=== PATIENT | female | born 1980 | race Caucasian/White ===

== ENCOUNTER → 2021-05-15 14:47 | Outpatient (CLI) | payer OTHER, SELFPAY ==
--- NOTE | 2021-05-15 | DI.MG.S_ITS ---
BILATERAL DIGITAL SCREENING MAMMOGRAM 3D/2D WITH CAD: 05/15/2021 CLINICAL: Routine screening. Baseline exam. No prior exams were available for comparison. The tissue of both breasts is heterogeneously dense. This may lower the sensitivity of mammography. Current study was also evaluated with a Computer Aided Detection (CAD) system. No significant masses, calcifications, or other findings are seen in either breast. IMPRESSION: NEGATIVE There is no mammographic evidence of malignancy. A 1 year screening mammogram is recommended. This exam was interpreted at Station ID: [id number]. NOTE: For mammograms, a report in lay terms will be sent to the patient. Approximately 15% of breast malignancies will not be visualized mammographically. In the management of a palpable breast mass, a negative mammogram must not discourage biopsy of a clinically suspicious lesion. Electronically Signed By: Long romero/lolis:05/15/2021 17:11:27 letter sent: Normal Exam ACR BI-RADS Category 1: Negative [id number]
== END ==
PROVIDERS: PCP Family Medicine; Referring Provider Family Medicine; Visit Provider Family Medicine
DX: Z12.31 Encounter for screening mammogram for malignant neoplasm of breast (principal)
CPT/HCPCS: 77063; 77067

== ENCOUNTER 2021-07-14 09:45 | Outpatient (RCR) | payer OTHER, SELFPAY ==
--- NOTE | 2021-04-28 16:29 | PT.OIE ---
Current Diagnoses Tension-type headache, unspecified, not intractable (04/28/21) Past Medical History (Last Updated 03/12/21 @ 13:25 by Phong Corea MD) GERD (gastroesophageal reflux disease) Right carpal tunnel syndrome Visit Care Team Role Provider Type Phong oCrea MD Attending Provider Physician Primary Care Provider Referring Provider Specialty: [facility] Practice Address: [address] [place] [address], [facility] Email: [email or web address] Physical Therapy Initial Evaluation PT-OP-A Visit Information Start: 04/28/21 16:10 Freq: Status: Active Protocol: Document 04/28/21 16:11 OF (Rec: 04/28/21 16:29 OF [id number]) Out-Patient Physical Therapy Visit Information Visit Information Visit Type Initial Evaluation Visit Start Time 09:50 Visit Stop Time 10:29 Total Visit Minutes 39 Visit Number 1 Evaluation Information Evaluation Date 04/28/21 PT-OP-B Current Condition Start: 04/28/21 16:10 Freq: Status: Active Protocol: Document 04/28/21 16:11 OF (Rec: 04/28/21 16:29 OF [id number]) Current Condition History of Current Condition Onset Date several months Current Complaints headach suboccipital, frontal History of Current Condition Pt states she has had increasing frequency of headaches. 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 Current Functional Impairments (Reported) Functional Limitations- Other Pt states she has trouble sleeping or using computer or driving due to headache PT-OP-C Subjective Start: 04/28/21 16:10 Freq: Status: Active Protocol: Document 04/28/21 16:11 OF (Rec: 04/28/21 16:29 OF [id number]) OP-PT Subjective Patient Comments Patient Comments Pt states she has difficulty with ADL due to intense headaches, difficulty driving Patient Reported Progress Same OP-PT Pain Assessment Pain Assessment Grid Paper Pain Assessment Grid Completed Yes Location head Pain Location Details sub occipital and frontal Intensity 5 Scale Used Numeric (0 - 10) Description Aching,Chronic,Crushing Frequency Frequent Variations/Patterns can be frontal and post Other Pain Aggravating Factors unsure Pain Alleviating Factors None PT-OP-H Neuro Start: 04/28/21 16:10 Freq: Status: Active Protocol: Document 04/28/21 16:11 OF (Rec: 04/28/21 16:29 OF [id number]) Sensation Evaluation Gross Sensation Gross Sensation WNL Comments Summary Comments Pt reports inconsistent tingling over R dorsum of hand , up to elbow, occasional. PT-OP-K Range of Motion Start: 04/28/21 16:10 Freq: Status: Active Protocol: Document 04/28/21 16:11 OF (Rec: 04/28/21 16:29 OF [id number]) Cervical Spine Range of Motion Cervical Spine Active Testing Position Sitting Comments pt demonstrates normal Cspine AROM PT-OP-L Special Tests Start: 04/28/21 16:10 Freq: Status: Active Protocol: Document 04/28/21 16:11 OF (Rec: 04/28/21 16:29 OF [id number]) Special Tests Cervical Spine Special Tests Spurling's Test Test Results (-) Comments bilat PT-OP-Q Treatments Start: 04/28/21 16:10 Freq: Status: Active Protocol: Document 04/28/21 16:11 OF (Rec: 04/28/21 16:29 OF [id number]) Manual Therapy Treatment Soft Tissue Mobilization suboccipital Mobilization Type Sustained Pressure Intensity/Depth Moderate Body Position Supine Manual Traction Cervical Body Position Supine Reps/Duration x5min Comments pt educated upon instructing spouse for HEP Other Other Manual Treatments (-) neural tension testing for ulnar, median, radial nerves bilat Self-Care/Home Management Treatment Education Patient Education Home Exercise Program Other Education pt educated upon HEP for chin tucks while supine, cervical traction, nature of carpal baron being within hand only PT-OP-T Assessment and Plan Start: 04/28/21 16:10 Freq: Status: Active Protocol: Document 04/28/21 16:11 OF (Rec: 04/28/21 16:29 OF [id number]) Physical Therapy Assessment Rehab Potential Rehabilitation Potential Good Evaluation Complexity Number of Personal Factors/Comorbidities 1-2 Number of Body Systems Impaired 1-2 Clinical Presentation at Evaluation Stable Impairments Impairments Functional Activities,Pain, Strength Goals DNF strength Impairment deep neck flexor weakness Short Term Goal (STG) Pt will improve deep neck flexor strength to complete chin tuck x30sec STG Duration 2 weeks Senior Living Goal (LTG) Pt will improve deep neck flexor strength to complete chin tuck x60sec LTG Duration 6 weeks pain Impairment pt has pain with sitting, driving, school work Short Term Goal (STG) Pt will complete ADL with pain <4/10 STG Duration 2 weeks Senior Living Goal (LTG) Pt will complete ADL with pain <2/10 LTG Duration 6 weeks HEP Impairment Pt lacks HEP Short Term Goal (STG) Pt will be I with HEP for cervical strengthening and pain management STG Duration 2 weeks Assessment Summary Assessment Mitra is a pleasant 41yo female. She presents with headaches originating suboccipital and progressing to frontal. She states they do not seem related to her bilat hand pain. She states she has pain up forearms and into elbows. She has had carpal baron release on L with little relief. She states her hands are tingling/numb occasionally on dorsum of hand and sometimes she cannot extend her R fingers, upon evaluation she has normal sensation and ROM. She may benefit from further physical therapy to address her headaches with suboccipital stretching, deep neck flexor strengthening and pt education upon home office modifications. She has been advised to set up monitor at eye level, 90/90 for shoulder and elbows, use a supportive chair to reduce forward head. She responds well to traction today and suboccipital release . She is aware of both for HEP , but declines handout. She is requesting 1x/week appts. Physical Therapy Plan Frequency and Duration Frequency of Treatment 1x/Week Duration of Treatment 6weeks Plan of Care Start Date 04/28/21 Plan of Care End Date 06/09/21 Therapeutic Interventions Therapeutic Interventions Gait Training,Home Exercise Program,Joint Mobilizations, Manual Therapy,Neuromuscular Re-education,Patient/Caregiver Education,Self-Care/Home Management,Soft Tissue Mobilization,Therapeutic Activities,Therapeutic Exercises Modalities Cold Pack/Ice Massage,Hot Packs Next Visit Focus/Plan Next Note Type Treatment Note Next Visit Plan re assess HEP for cervical traction from spouse, chin tucks while supine. Consider progressing to rows, retractions if symptoms are improving.
--- NOTE | 2021-04-28 16:30 | PT.OPPOC ---
Physical, Occupational & Speech Therapy At [facility] Current Diagnoses Tension-type headache, unspecified, not intractable (04/28/21) Visit Care Team Role Provider Type Phong Corea MD Attending Provider Physician Primary Care Provider Referring Provider Specialty: Family Practice Address: [address] [place] [address], [facility] Email: [email or web address] Plan Of Care PT-OP-T Assessment and Plan Start: 04/28/21 16:10 Freq: Status: Active Protocol: Document 04/28/21 16:11 OF (Rec: 04/28/21 16:29 OF [id number]) Physical Therapy Assessment Rehab Potential Rehabilitation Potential Good Evaluation Complexity Number of Personal Factors/Comorbidities 1-2 Number of Body Systems Impaired 1-2 Clinical Presentation at Evaluation Stable Impairments Impairments Functional Activities,Pain, Strength Goals DNF strength Impairment deep neck flexor weakness Short Term Goal (STG) Pt will improve deep neck flexor strength to complete chin tuck x30sec STG Duration 2 weeks Group Home Goal (LTG) Pt will improve deep neck flexor strength to complete chin tuck x60sec LTG Duration 6 weeks pain Impairment pt has pain with sitting, driving, school work Short Term Goal (STG) Pt will complete ADL with pain <4/10 STG Duration 2 weeks Group Home Goal (LTG) Pt will complete ADL with pain <2/10 LTG Duration 6 weeks HEP Impairment Pt lacks HEP Short Term Goal (STG) Pt will be I with HEP for cervical strengthening and pain management STG Duration 2 weeks Assessment Summary Assessment Mitra is a pleasant 41yo female. She presents with headaches originating suboccipital and progressing to frontal. She states they do not seem related to her bilat hand pain. She states she has pain up forearms and into elbows. She has had carpal baron release on L with little relief. She states her hands are tingling/numb occasionally on dorsum of hand and sometimes she cannot extend her R fingers, upon evaluation she has normal sensation and ROM. She may benefit from further physical therapy to address her headaches with suboccipital stretching, deep neck flexor strengthening and pt education upon home office modifications. She has been advised to set up monitor at eye level, 90/90 for shoulder and elbows, use a supportive chair to reduce forward head. She responds well to traction today and suboccipital release . She is aware of both for HEP , but declines handout. She is requesting 1x/week appts. Physical Therapy Plan Frequency and Duration Frequency of Treatment 1x/Week Duration of Treatment 6weeks Plan of Care Start Date 04/28/21 Plan of Care End Date 06/09/21 Therapeutic Interventions Therapeutic Interventions Gait Training,Home Exercise Program,Joint Mobilizations, Manual Therapy,Neuromuscular Re-education,Patient/Caregiver Education,Self-Care/Home Management,Soft Tissue Mobilization,Therapeutic Activities,Therapeutic Exercises Modalities Cold Pack/Ice Massage,Hot Packs Next Visit Focus/Plan Next Note Type Treatment Note Next Visit Plan re assess HEP for cervical traction from spouse, chin tucks while supine. Consider progressing to rows, retractions if symptoms are improving. Plan of Care Dates Plan of Care Start Date 04/28/21 Plan of Care End Date 06/09/21 Electronically Signed by: David Zamudio, PT 04/28/21 3046 Please Sign and Return: I have reviewed this Plan of Care and certify that the skilled therapy services above are required to meet the patient?s needs. Physician Signature Date Printed Name and Credentials Clinical Instructor Signature Printed Name and Credentials
--- NOTE | 2021-05-08 15:38 | PT.OTN ---
Current Diagnoses Tension-type headache, unspecified, not intractable (05/08/21) Physical Therapy Treatment Note PT-OP-A Visit Information Start: 04/28/21 16:10 Freq: Status: Active Protocol: Document 05/08/21 13:03 MB (Rec: 05/08/21 13:53 MB [id number]) Out-Patient Physical Therapy Visit Information Visit Information Visit Type Treatment Note Visit Start Time 13:03 Visit Stop Time 13:45 Total Visit Minutes 42 Visit Number 2 PT-OP-B Current Condition Start: 04/28/21 16:10 Freq: Status: Active Protocol: Document 04/28/21 16:11 OF (Rec: 04/28/21 16:29 OF [id number]) Current Condition History of Current Condition Onset Date several months Current Complaints headach suboccipital, frontal History of Current Condition Pt states she has had increasing frequency of headaches. 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 PT-OP-H Neuro Start: 04/28/21 16:10 Freq: Status: Active Protocol: Document 04/28/21 16:11 OF (Rec: 04/28/21 16:29 OF [id number]) Sensation Evaluation Gross Sensation Gross Sensation WNL Comments Summary Comments Pt reports inconsistent tingling over R dorsum of hand , up to elbow, occasional. PT-OP-K Range of Motion Start: 04/28/21 16:10 Freq: Status: Active Protocol: Document 04/28/21 16:11 OF (Rec: 04/28/21 16:29 OF [id number]) Cervical Spine Range of Motion Cervical Spine Active Testing Position Sitting Comments pt demonstrates normal Cspine AROM PT-OP-L Special Tests Start: 04/28/21 16:10 Freq: Status: Active Protocol: Document 04/28/21 16:11 OF (Rec: 04/28/21 16:29 OF [id number]) Special Tests Cervical Spine Special Tests Spurling's Test Test Results (-) Comments bilat PT-OP-Q Treatments Start: 04/28/21 16:10 Freq: Status: Active Protocol: Document 05/08/21 13:03 MB (Rec: 05/08/21 15:38 MB [id number]) Therapeutic Exercises Standing Exercises Racquet ball massage Standing Exercise Name Intrascapular STM, MWM upper traps in corner and infraspinatus against wall Side bilateral Self-Care/Home Management Treatment Education Patient Education Body Mechanics,Home Exercise Program,Joint Protection,Pain Management,Posture Other Education Education and handouts about sleep hygiene and headache management including reducing blue light, increasing non- caffeinated fluid intake, use of ice, low inflammatory diet, benefits of magnesium (clear with pharmacist/doctor), proper bra fitting to decrease thoracic compression, use of towel roll in pillow case for cervical support when sleeping , benefits of proper sitting with computer, walking for relaxation, taking breaks when sitting at computer PT-OP-T Assessment and Plan Start: 04/28/21 16:10 Freq: Status: Active Protocol: Document 05/08/21 13:03 MB (Rec: 05/08/21 13:53 MB [id number]) Physical Therapy Assessment Rehab Potential Rehabilitation Potential Good Evaluation Complexity Number of Personal Factors/Comorbidities 1-2 Number of Body Systems Impaired 1-2 Clinical Presentation at Evaluation Stable Impairments Impairments Functional Activities,Pain, Strength Goals DNF strength Impairment deep neck flexor weakness Short Term Goal (STG) Pt will improve deep neck flexor strength to complete chin tuck x30sec STG Duration 2 weeks Casting Operator Helper Goal (LTG) Pt will improve deep neck flexor strength to complete chin tuck x60sec LTG Duration 6 weeks pain Impairment pt has pain with sitting, driving, school work Short Term Goal (STG) Pt will complete ADL with pain <4/10 STG Duration 2 weeks [facility] Goal (LTG) Pt will complete ADL with pain <2/10 LTG Duration 6 weeks HEP Impairment Pt lacks HEP Short Term Goal (STG) Pt will be I with HEP for cervical strengthening and pain management STG Duration 2 weeks Assessment Summary Assessment Extensive sleep hygiene and headache self-care education today and provided handouts. Initiated racquet ball massage for myofascial tension. Physical Therapy Plan Frequency and Duration Frequency of Treatment 1x/Week Duration of Treatment 6weeks Plan of Care Start Date 04/28/21 Plan of Care End Date 06/09/21 Therapeutic Interventions Therapeutic Interventions Gait Training,Home Exercise Program,Joint Mobilizations, Manual Therapy,Neuromuscular Re-education,Patient/Caregiver Education,Self-Care/Home Management,Soft Tissue Mobilization,Therapeutic Activities,Therapeutic Exercises Modalities Cold Pack/Ice Massage,Hot Packs Next Visit Focus/Plan Next Note Type Treatment Note Next Visit Plan Check in to see how PT education and racquet ball massage is going, consider providing computer workstation /ergonomic handout and education, pect stretch in hook lying, thoracic rotation in sitting and progress scapular retraction/row and shoulder ER with band in standing, manual work
--- NOTE | 2021-05-14 11:00 | PT.OTN ---
Current Diagnoses Tension-type headache, unspecified, not intractable (05/14/21) Physical Therapy Treatment Note PT-OP-A Visit Information Start: 04/28/21 16:10 Freq: Status: Active Protocol: Document 05/14/21 10:55 OF (Rec: 05/14/21 11:00 OF [id number]) Out-Patient Physical Therapy Visit Information Visit Information Visit Type Treatment Note Visit Start Time 09:45 Visit Stop Time 10:30 Total Visit Minutes 45 Visit Number 3 Evaluation Information Evaluation Date 04/28/21 PT-OP-B Current Condition Start: 04/28/21 16:10 Freq: Status: Active Protocol: Document 04/28/21 16:11 OF (Rec: 04/28/21 16:29 OF [id number]) Current Condition History of Current Condition Onset Date several months Current Complaints headach suboccipital, frontal History of Current Condition Pt states she has had increasing frequency of headaches. 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 Current Functional Impairments (Reported) Functional Limitations- Other Pt states she has trouble sleeping or using computer or driving due to headache PT-OP-C Subjective Start: 04/28/21 16:10 Freq: Status: Active Protocol: Document 05/14/21 10:55 OF (Rec: 05/14/21 11:00 OF [id number]) OP-PT Subjective Patient Comments Patient Comments I have been doing the exercises, sleeping better, seems to be working Patient Reported Progress Improving OP-PT Pain Assessment Pain Assessment Grid Paper Pain Assessment Grid Completed No Location head Intensity 3 Scale Used Numeric (0 - 10) Description Aching Frequency Occasional PT-OP-H Neuro Start: 04/28/21 16:10 Freq: Status: Active Protocol: Document 04/28/21 16:11 OF (Rec: 04/28/21 16:29 OF [id number]) Sensation Evaluation Gross Sensation Gross Sensation WNL Comments Summary Comments Pt reports inconsistent tingling over R dorsum of hand , up to elbow, occasional. PT-OP-K Range of Motion Start: 04/28/21 16:10 Freq: Status: Active Protocol: Document 04/28/21 16:11 OF (Rec: 04/28/21 16:29 OF [id number]) Cervical Spine Range of Motion Cervical Spine Active Testing Position Sitting Comments pt demonstrates normal Cspine AROM PT-OP-L Special Tests Start: 04/28/21 16:10 Freq: Status: Active Protocol: Document 04/28/21 16:11 OF (Rec: 04/28/21 16:29 OF [id number]) Special Tests Cervical Spine Special Tests Spurling's Test Test Results (-) Comments bilat PT-OP-Q Treatments Start: 04/28/21 16:10 Freq: Status: Active Protocol: Document 05/14/21 10:55 OF (Rec: 05/14/21 11:00 OF [id number]) Therapeutic Exercises Sitting Exercises seated trunk rotation Side bilateral Reps/Minutes cues for thoracic extension, rotation with proper breathing Standing Exercises Racquet ball massage Standing Exercise Name Intrascapular STM, MWM upper traps in corner and infraspinatus against wall Side bilateral Manual Therapy Treatment Soft Tissue Mobilization suboccipital Mobilization Type Rolling,Sustained Pressure Intensity/Depth Moderate Body Position Supine Manual Traction Cervical Body Position Supine Reps/Duration x5min Comments pt states family has been assisting with c spine traction Lymphedema Treatment Patient Education Other Pt aware of limiting irritating stimuli prior to sleep, proper positioning with sleep, diet modifications to reduce GIBSON frequency. PT-OP-T Assessment and Plan Start: 04/28/21 16:10 Freq: Status: Active Protocol: Document 05/14/21 10:55 OF (Rec: 05/14/21 11:00 OF [id number]) Physical Therapy Assessment Rehab Potential Rehabilitation Potential Good Evaluation Complexity Number of Personal Factors/Comorbidities 1-2 Number of Body Systems Impaired 1-2 Clinical Presentation at Evaluation Stable Impairments Impairments Functional Activities,Pain, Strength Progress Towards Goals Progress Towards Goals Progressing Toward Goals Assessment Summary Assessment Mtira has reduced GIBSON frequency, she states HEP has been helpful. She demonstrates HEP with MIN A Physical Therapy Plan Frequency and Duration Frequency of Treatment 1x/Week Duration of Treatment 6weeks Plan of Care Start Date 04/28/21 Plan of Care End Date 06/09/21 Therapeutic Interventions Therapeutic Interventions Gait Training,Home Exercise Program,Joint Mobilizations, Manual Therapy,Neuromuscular Re-education,Patient/Caregiver Education,Self-Care/Home Management,Soft Tissue Mobilization,Therapeutic Activities,Therapeutic Exercises Modalities Cold Pack/Ice Massage,Hot Packs Next Visit Focus/Plan Next Note Type Treatment Note Next Visit Plan Re assess T spine rotation/ extension with HEP. workstation/ergonomic handout and education, pect stretch in hook lying, thoracic rotation in sitting and progress scapular retraction/row and shoulder ER with band in standing, manual work
--- NOTE | 2021-05-19 10:28 | PT.OTN ---
Current Diagnoses Tension-type headache, unspecified, not intractable (05/19/21) Physical Therapy Treatment Note PT-OP-A Visit Information Start: 04/28/21 16:10 Freq: Status: Active Protocol: Document 05/19/21 10:23 OF (Rec: 05/19/21 10:28 OF [id number]) Out-Patient Physical Therapy Visit Information Visit Information Visit Type Treatment Note Visit Start Time 09:40 Visit Stop Time 10:22 Total Visit Minutes 42 Visit Number 3 Evaluation Information Evaluation Date 04/28/21 PT-OP-B Current Condition Start: 04/28/21 16:10 Freq: Status: Active Protocol: Document 04/28/21 16:11 OF (Rec: 04/28/21 16:29 OF [id number]) Current Condition History of Current Condition Onset Date several months Current Complaints headach suboccipital, frontal History of Current Condition Pt states she has had increasing frequency of headaches. 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 Patient Reported Progress Same OP-PT Pain Assessment Pain Assessment Grid Paper Pain Assessment Grid Completed No Location head Intensity 1 Scale Used Numeric (0 - 10) Description Aching Frequency Occasional Variations/Patterns can be frontal and post PT-OP-H Neuro Start: 04/28/21 16:10 Freq: Status: Active Protocol: Document 04/28/21 16:11 OF (Rec: 04/28/21 16:29 OF [id number]) Sensation Evaluation Gross Sensation Gross Sensation WNL Comments Summary Comments Pt reports inconsistent tingling over R dorsum of hand , up to elbow, occasional. PT-OP-K Range of Motion Start: 04/28/21 16:10 Freq: Status: Active Protocol: Document 04/28/21 16:11 OF (Rec: 04/28/21 16:29 OF [id number]) Cervical Spine Range of Motion Cervical Spine Active Testing Position Sitting Comments pt demonstrates normal Cspine AROM PT-OP-L Special Tests Start: 04/28/21 16:10 Freq: Status: Active Protocol: Document 04/28/21 16:11 OF (Rec: 04/28/21 16:29 OF [id number]) Special Tests Cervical Spine Special Tests Spurling's Test Test Results (-) Comments bilat PT-OP-Q Treatments Start: 04/28/21 16:10 Freq: Status: Active Protocol: Document 05/19/21 10:23 OF (Rec: 05/19/21 10:28 OF [id number]) Therapeutic Exercises Sitting Exercises seated trunk rotation Side bilateral Reps/Minutes cues for thoracic extension, rotation with proper breathing Comments demo for UE positioning improves performance Standing Exercises Racquet ball massage Standing Exercise Name using theracane per request today, intrascap, post cerv Side bilateral Manual Therapy Treatment Soft Tissue Mobilization suboccipital Mobilization Type Rolling,Sustained Pressure Intensity/Depth Moderate Body Position Supine Manual Traction Cervical Body Position Supine Reps/Duration x5min Comments pt states family has been assisting with c spine traction PT-OP-T Assessment and Plan Start: 04/28/21 16:10 Freq: Status: Active Protocol: Document 05/19/21 10:23 OF (Rec: 05/19/21 10:28 OF [email or web address]) Physical Therapy Assessment Rehab Potential Rehabilitation Potential Good Evaluation Complexity Number of Personal Factors/Comorbidities 1-2 Number of Body Systems Impaired 1-2 Clinical Presentation at Evaluation Stable Impairments Impairments Functional Activities,Pain, Strength Goals DNF strength Impairment deep neck flexor weakness Short Term Goal (STG) Pt will improve deep neck flexor strength to complete chin tuck x30sec STG Duration 2 weeks Plastics Engineering Teacher Goal (LTG) Pt will improve deep neck flexor strength to complete chin tuck x60sec LTG Duration 6 weeks pain Impairment pt has pain with sitting, driving, school work Short Term Goal (STG) Pt will complete ADL with pain <4/10 STG Duration 2 weeks Plastics Engineering Teacher Goal (LTG) Pt will complete ADL with pain <2/10 LTG Duration 6 weeks HEP Impairment Pt lacks HEP Short Term Goal (STG) Pt will be I with HEP for cervical strengthening and pain management STG Duration 2 weeks Progress Towards Goals Progress Towards Goals Progressing Toward Goals Assessment Summary Assessment Mitra has reduced GIBSON frequency, she states HEP has been helpful. She demonstrates HEP with ANTONY Underwood. She reports pain after last tx, resolved with Aleve and stretches Physical Therapy Plan Frequency and Duration Frequency of Treatment 1x/Week Duration of Treatment 6weeks Plan of Care Start Date 04/28/21 Plan of Care End Date 06/09/21 Therapeutic Interventions Therapeutic Interventions Gait Training,Home Exercise Program,Joint Mobilizations, Manual Therapy,Neuromuscular Re-education,Patient/Caregiver Education,Self-Care/Home Management,Soft Tissue Mobilization,Therapeutic Activities,Therapeutic Exercises Modalities Cold Pack/Ice Massage,Hot Packs Next Visit Focus/Plan Next Note Type Treatment Note Next Visit Plan Re assess T spine rotation/ extension with HEP. workstation/ergonomic handout and education, pect stretch in hook lying, thoracic rotation in sitting and progress scapular retraction/row and shoulder ER with band in standing, manual work
--- NOTE | 2021-05-28 15:10 | PT.OTN ---
Current Diagnoses Tension-type headache, unspecified, not intractable (05/28/21) Physical Therapy Treatment Note PT-OP-A Visit Information Start: 04/28/21 16:10 Freq: Status: Active Protocol: Document 05/28/21 14:35 SP (Rec: 05/28/21 15:41 SP [id number]) Out-Patient Physical Therapy Visit Information Visit Information Visit Type Treatment Note Visit Note Pt had to leave early. Visit Start Time 14:32 Visit Stop Time 15:10 Total Visit Minutes 38 Visit Number 4 Number of PEDIATRIC OPHTHALMOLOGIST Visits 1 Evaluation Information Evaluation Date 04/28/21 PT-OP-B Current Condition Start: 04/28/21 16:10 Freq: Status: Active Protocol: Document 04/28/21 16:11 OF (Rec: 04/28/21 16:29 OF [id number]) Current Condition History of Current Condition Onset Date several months Current Complaints headach suboccipital, frontal History of Current Condition Pt states she has had increasing frequency of headaches. 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 She states is compliant with HEP. Pt states quinones Patient Reported Progress Improving PT-OP-H Neuro Start: 04/28/21 16:10 Freq: Status: Active Protocol: Document 04/28/21 16:11 OF (Rec: 04/28/21 16:29 OF [id number]) Sensation Evaluation Gross Sensation Gross Sensation WNL Comments Summary Comments Pt reports inconsistent tingling over R dorsum of hand , up to elbow, occasional. PT-OP-K Range of Motion Start: 04/28/21 16:10 Freq: Status: Active Protocol: Document 04/28/21 16:11 OF (Rec: 04/28/21 16:29 OF [id number]) Cervical Spine Range of Motion Cervical Spine Active Testing Position Sitting Comments pt demonstrates normal Cspine AROM PT-OP-L Special Tests Start: 04/28/21 16:10 Freq: Status: Active Protocol: Document 04/28/21 16:11 OF (Rec: 04/28/21 16:29 OF [id number]) Special Tests Cervical Spine Special Tests Spurling's Test Test Results (-) Comments bilat PT-OP-Q Treatments Start: 04/28/21 16:10 Freq: Status: Active Protocol: Document 05/28/21 14:35 SP (Rec: 05/28/21 15:41 SP [id number]) Therapeutic Exercises Supine Exercises cervical rotation w/ head nod Side bilateral Reps/Minutes x10 reps Comments cued slow rotation after manual, slow gentle comforting head nods small rg scap retraction/ depression Reps/Minutes 2x5 reps Comments incorporated with cervical chin nods/ CS ext Supine Exercise Name chin nod/tuck Reps/Minutes 10 reps x5 sec Comments cued slow w/ head contact table, if stable painfree unweight head/ lift Standing Exercises theracane self STMs Standing Exercise Name posterior neck musculature, posterior and inter scap musculature Side bilateral Reps/Minutes 4 min Comments demonstrated small circles, instructed sust pres MWM head nod/turn/scap mob Racquet ball massage Standing Exercise Name discussed is performing at home for self relief Side bilateral Equipment Used racquetball on wall Comments finds very helpful. Manual Therapy Treatment Soft Tissue Mobilization STMs Body Location suboccipitals, suboccipital release, SCM, proximal UT and Lev Scap Mobilization Type Cross-Friction,Sustained Pressure,Other Intensity/Depth Moderate Body Position Hooklying Comments manual and instruction on self pincer knead SCM and MWM head nod/ turn use of theracane suboccipitals, UT, lev scap with scap shld elevation. PT-OP-T Assessment and Plan Start: 04/28/21 16:10 Freq: Status: Active Protocol: Document 05/28/21 14:35 SP (Rec: 05/28/21 15:41 SP [id number]) Physical Therapy Assessment Goals DNF strength Impairment deep neck flexor weakness Short Term Goal (STG) Pt will improve deep neck flexor strength to complete chin tuck x30sec STG Duration 2 weeks Dishwashing Machine Operator Goal (LTG) Pt will improve deep neck flexor strength to complete chin tuck x60sec LTG Duration 6 weeks pain Impairment pt has pain with sitting, driving, school work Short Term Goal (STG) Pt will complete ADL with pain <4/10 STG Duration 2 weeks Dishwashing Machine Operator Goal (LTG) Pt will complete ADL with pain <2/10 LTG Duration 6 weeks HEP Impairment Pt lacks HEP Short Term Goal (STG) Pt will be I with HEP for cervical strengthening and pain management 05/28/21: seated trunk rotation, supine chin nods/DNF CS ext, CS rotation w/ nods added today, self STMs using ball on wall, added self manual SCM MWM today. STG Duration 2 weeks Assessment Summary Assessment Pt responded well to manual and instruction on self MWM application SCM, UT and inter scap using theracane. Reviewed supine DNF strengthening CS ROM and MWM CS rotatoin. Discussed postural alignment sitting while driving. Review future tx. Pt stated neck feels less tension. Physical Therapy Plan Frequency and Duration Frequency of Treatment 1x/Week Duration of Treatment 6weeks Plan of Care Start Date 04/28/21 Plan of Care End Date 06/09/21 Therapeutic Interventions Therapeutic Interventions Gait Training,Home Exercise Program,Joint Mobilizations, Manual Therapy,Neuromuscular Re-education,Patient/Caregiver Education,Self-Care/Home Management,Soft Tissue Mobilization,Therapeutic Activities,Therapeutic Exercises Modalities Cold Pack/Ice Massage,Hot Packs Next Visit Focus/Plan Next Note Type Treatment Note Next Visit Plan Next tx CLAIMS VICE PRESIDENT and manual instruction on self head/jaw, add open book, added pec stretch over rolled blanket/ foam roller, TB scap retraction at wall. Assess HEP , goal assessments. POC: workstation/ergonomic handout and education, pect stretch in hook lying, progress scapular retraction/ row and shoulder ER with band in standing, manual work
--- NOTE | 2021-06-02 10:37 | PT.OTN ---
Current Diagnoses Tension-type headache, unspecified, not intractable (06/02/21) Physical Therapy Treatment Note PT-OP-A Visit Information Start: 04/28/21 16:10 Freq: Status: Active Protocol: Document 06/02/21 09:46 SP (Rec: 06/02/21 12:53 SP [id number]) Out-Patient Physical Therapy Visit Information Visit Information Visit Type Treatment Note Visit Start Time 09:46 Visit Stop Time 10:37 Total Visit Minutes 51 Visit Number 5 Number of LICENSING REGISTRATION EXAMINER Visits 2 Evaluation Information Evaluation Date 04/28/21 PT-OP-B Current Condition Start: 04/28/21 16:10 Freq: Status: Active Protocol: Document 04/28/21 16:11 OF (Rec: 04/28/21 16:29 OF [id number]) Current Condition History of Current Condition Onset Date several months Current Complaints headach suboccipital, frontal History of Current Condition Pt states she has had increasing frequency of headaches. 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 Compliant with HEP and feels helping. Patient Reported Progress Improving PT-OP-H Neuro Start: 04/28/21 16:10 Freq: Status: Active Protocol: Document 04/28/21 16:11 OF (Rec: 04/28/21 16:29 OF [id number]) Sensation Evaluation Gross Sensation Gross Sensation WNL Comments Summary Comments Pt reports inconsistent tingling over R dorsum of hand , up to elbow, occasional. PT-OP-K Range of Motion Start: 04/28/21 16:10 Freq: Status: Active Protocol: Document 04/28/21 16:11 OF (Rec: 04/28/21 16:29 OF [id number]) Cervical Spine Range of Motion Cervical Spine Active Testing Position Sitting Comments pt demonstrates normal Cspine AROM PT-OP-L Special Tests Start: 04/28/21 16:10 Freq: Status: Active Protocol: Document 04/28/21 16:11 OF (Rec: 04/28/21 16:29 OF [id number]) Special Tests Cervical Spine Special Tests Spurling's Test Test Results (-) Comments bilat PT-OP-Q Treatments Start: 04/28/21 16:10 Freq: Status: Active Protocol: Document 06/02/21 09:46 SP (Rec: 06/02/21 12:53 SP [id number]) Therapeutic Exercises Supine Exercises chin nods/ CS ext Supine Exercise Name chin nod/tuck Equipment Used CS over rolled towel Reps/Minutes 5 reps x5 sec- review Comments cued slow w/ head contact table, if stable painfree unweight head/ lift Prone Exercises prone scap stab & posture Prone Exercise Name scap retract/depress, add UE lift, add CS neutral head nod flexion Resistance AROM for awareness (not a HEP) Reps/Minutes 3s hold x2 reps each addition Comments improved alignment corrections post cues for carryover standing at wall pos Standing Exercises resisted scap retraction Standing Exercise Name shld ER w/ TB set up Side bilateral Resistance Tb #1 Equipment Used can perform back to wall for postural alignment Reps/Minutes 5 sec hold x5 Comments added to HEP: Cued neutral CS, TA/no LS arch, wall posture Standing Exercise Name alignment awareness for spine Reps/Minutes 5 sec x5 Comments cued TA to reduce LS arch off wall, no UT recruit pec stretch Standing Exercise Name added to HEP Side bilateral Equipment Used in corner Reps/Minutes 30 x3 Comments ed on CS neutral, TA/ no arch LS, various UE ranges Racquet ball massage Standing Exercise Name discussed is performing at home for self relief Side bilateral Equipment Used racquetball on wall Comments finds very helpful. Manual Therapy Treatment Soft Tissue Mobilization jaw Body Location B masseter, medial pterygoid Mobilization Type Myofascial Release,Sustained Pressure Intensity/Depth Moderate Body Position Supine Comments manual and ed self application for decrease tension jaw and can carryover relaxing head/ neck- good resulted feedback STMs Body Location suboccipitals, suboccipital release, SCM, UT, prox scalene , CEO & FOUNDER, temporalis Mobilization Type Cross-Friction,Sustained Pressure,Other Intensity/Depth Moderate Body Position Hooklying Comments manual and instruction on self application. Initiated craniosacral therapy: decompression attention over parietal/frontal/temporal/ sphenoid, mandible with ed self application directioning and light wt contact nickel at home if helpful. Good understanding PT-OP-T Assessment and Plan Start: 04/28/21 16:10 Freq: Status: Active Protocol: Document 06/02/21 09:46 SP (Rec: 06/02/21 12:53 SP [id number]) Physical Therapy Assessment Goals DNF strength Impairment deep neck flexor weakness Short Term Goal (STG) Pt will improve deep neck flexor strength to complete chin tuck x30sec STG Duration 2 weeks Custodial Goal (LTG) Pt will improve deep neck flexor strength to complete chin tuck x60sec LTG Duration 6 weeks pain Impairment pt has pain with sitting, driving, school work Short Term Goal (STG) Pt will complete ADL with pain <4/10 06/02/21: pt report [id number] reported 1-2/ per week reduction in instances, comparied to 5 xwk. STG Duration 2 weeks Plumbing Mechanic Goal (LTG) Pt will complete ADL with pain <2/10 LTG Duration 6 weeks HEP Impairment Pt lacks HEP Short Term Goal (STG) Pt will be I with HEP for cervical strengthening and pain management 05/28/21: seated trunk rotation, supine chin nods/DNF CS ext, CS rotation w/ nods added today, self STMs using ball on wall, added self manual SCM MWM today. STG Duration 2 weeks Assessment Summary Assessment Pt responds well to manual, added STMs to cranial bones and jaw musculature w/ decompression attention. Reviewed CS neutral and neck flexor facilitation. Initiated wall posture and scap retraction ed awareness to allow improve posture during ADLs. Pt reports improvements in pain lessening weekly instances. Physical Therapy Plan Frequency and Duration Frequency of Treatment 1x/Week Duration of Treatment 6weeks Plan of Care Start Date 04/28/21 Plan of Care End Date 06/09/21 Therapeutic Interventions Therapeutic Interventions Gait Training,Home Exercise Program,Joint Mobilizations, Manual Therapy,Neuromuscular Re-education,Patient/Caregiver Education,Self-Care/Home Management,Soft Tissue Mobilization,Therapeutic Activities,Therapeutic Exercises Modalities Cold Pack/Ice Massage,Hot Packs Next Visit Focus/Plan Next Note Type Treatment Note Next Visit Plan Next tx add open book, pec stretch corner vs add over rolled blanket/noodle/ foam roller, postural strengthening over noodle/ foam roller, stand rows/ext, quadruped thread needle ROM. POC: workstation/ergonomic handout and education, progress scapular retraction/ row and shoulder ER with band in standing, manual work
--- NOTE | 2021-06-08 10:45 | PT-OP ANOTE ---
Pt did not show for appt today, MOBILE HOME TECHNICIAN called pt and she thought her appt was on 06/09 but after review of her print out found was mistaken. She is aware will be charged a NS fee for today. Sent message up to front to add appt on 06/11 at 9 am with Zuleima pt agreed wanting to come in earlier that currently scheduled 06/26. Kept 06/26 appt, PT next appt to update if need schedule more appts with PT/ MOBILE HOME TECHNICIAN for continuation of tx.
--- NOTE | 2021-06-12 14:21 | PT.OTN ---
Current Diagnoses Tension-type headache, unspecified, not intractable (06/12/21) Physical Therapy Treatment Note PT-OP-A Visit Information Start: 04/28/21 16:10 Freq: Status: Active Protocol: Document 06/12/21 13:02 MB (Rec: 06/12/21 14:20 MB [id number]) Out-Patient Physical Therapy Visit Information Visit Information Visit Type Progress Note Visit Start Time 13:02 Visit Stop Time 14:00 Total Visit Minutes 58 Visit Number 7 Number of VERTICAL CONTOUR BAND SAW OPERATOR Visits 0 Evaluation Information Evaluation Date 04/28/21 PT-OP-B Current Condition Start: 04/28/21 16:10 Freq: Status: Active Protocol: Document 04/28/21 16:11 OF (Rec: 04/28/21 16:29 OF [id number]) Current Condition History of Current Condition Onset Date several months Current Complaints headach suboccipital, frontal History of Current Condition Pt states she has had increasing frequency of headaches. 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 She feels more relaxed across the front of her head and the headaches don't have as much as an ocular effect. She still has pain in the back of her head. She con't to have trouble sleeping d/t right arm tingling with sleeping on right side. She has left arm soreness if she sleeps on her left side. She gets soreness on her occiput if she sleeps on her back. PT-OP-H Neuro Start: 04/28/21 16:10 Freq: Status: Active Protocol: Document 04/28/21 16:11 OF (Rec: 04/28/21 16:29 OF [id number]) Sensation Evaluation Gross Sensation Gross Sensation WNL Comments Summary Comments Pt reports inconsistent tingling over R dorsum of hand , up to elbow, occasional. PT-OP-K Range of Motion Start: 04/28/21 16:10 Freq: Status: Active Protocol: Document 04/28/21 16:11 OF (Rec: 04/28/21 16:29 OF [id number]) Cervical Spine Range of Motion Cervical Spine Active Testing Position Sitting Comments pt demonstrates normal Cspine AROM PT-OP-L Special Tests Start: 04/28/21 16:10 Freq: Status: Active Protocol: Document 04/28/21 16:11 OF (Rec: 04/28/21 16:29 OF [id number]) Special Tests Cervical Spine Special Tests Spurling's Test Test Results (-) Comments bilat PT-OP-Q Treatments Start: 04/28/21 16:10 Freq: Status: Active Protocol: Document 06/12/21 13:02 MB (Rec: 06/12/21 14:20 MB [id number]) Therapeutic Exercises Sidelying Exercises Open book Side bilateral Comments 3 reps each side Manual Therapy Treatment Other Other Manual Treatments Pt agrees to Counterstrain to assess and treat fascial tension and she presents with tension in cranial and cervical periosteal and thoracic LV systems and PT treats 4 points in these systems and her occiput-C1 feels much better after treatment Left first rib isometric suboccipital release Self-Care/Home Management Treatment Education Other Education Extensive discussion and education about sleeping position with pillow when in hook lying and both sides, increased non-caffeinated fluid intake, take break with school work, possibly benefit from sleep study d/t headaches at night PT-OP-T Assessment and Plan Start: 04/28/21 16:10 Freq: Status: Active Protocol: Document 06/12/21 13:02 MB (Rec: 06/12/21 14:20 MB [id number]) Physical Therapy Assessment Goals 3 Public Health Sanitarian Goal (LTG) Pt will perform progressive HEP with I including postural, flexibility, relaxation and strengthening exercises to improve pain by 07/28/21. LTG Duration 6 weeks 2 Public Health Sanitarian Goal (LTG) Pt will report a 50% improvement in sleeping to improve restorative rest by . LTG Duration 6 weeks 4 Public Health Sanitarian Goal (LTG) Pt will report a 75% improvement in headache pain in general to improve quality of life by 07/28/21. 06/12/21: Pt reports a 50% improvement in headache pain since starting PT. LTG Duration 6 weeks Assessment Summary Assessment Pt has progressed toward pain goals since starting PT. PT updated goals today. Recommend ongoing PT 1x/wk to improve posture, pain and to progress strengthening and manual work. Physical Therapy Plan Frequency and Duration Frequency of Treatment 1x/Week Duration of Treatment 6 weeks Plan of Care Start Date 06/12/21 Plan of Care End Date 07/28/21 Therapeutic Interventions Therapeutic Interventions Balance Training,Canalithic Repositioning,Gait Training, Home Exercise Program,Joint Mobilizations,Manual Therapy, Neuromuscular Re-education, Patient/Caregiver Education, Self-Care/Home Management,Soft Tissue Mobilization,Taping, Therapeutic Activities, Therapeutic Exercises Modalities Cold Pack/Ice Massage,Hot Packs Next Visit Focus/Plan Next Note Type Treatment Note Next Visit Plan Consider pool noodle pect stretch and strengthening progression with theraband, Buteyko breathing
--- NOTE | 2021-06-12 14:21 | PT.OPPOC ---
Addendum entered and electronically signed by Zuleima Suarez, PT 06/12/21 14:24: Need to send to Dr. Corea Original Note: Physical, Occupational & Speech Therapy At [facility] Current Diagnoses Tension-type headache, unspecified, not intractable (06/12/21) Visit Care Team Role Provider Type Phong Corea MD Attending Provider Physician Primary Care Provider Referring Provider Specialty: Family Practice Address: [address] [place] [address], [facility] Email: [email or web address] Plan Of Care PT-OP-T Assessment and Plan Start: 04/28/21 16:10 Freq: Status: Active Protocol: Document 06/12/21 13:02 MB (Rec: 06/12/21 14:20 MB [id number]) Physical Therapy Assessment Goals 3 Snf Goal (LTG) Pt will perform progressive HEP with I including postural, flexibility, relaxation and strengthening exercises to improve pain by 07/28/21. LTG Duration 6 weeks 2 Snf Goal (LTG) Pt will report a 50% improvement in sleeping to improve restorative rest by . LTG Duration 6 weeks 4 Snf Goal (LTG) Pt will report a 75% improvement in headache pain in general to improve quality of life by 07/28/21. 06/12/21: Pt reports a 50% improvement in headache pain since starting PT. LTG Duration 6 weeks Assessment Summary Assessment Pt has progressed toward pain goals since starting PT. PT updated goals today. Recommend ongoing PT 1x/wk to improve posture, pain and to progress strengthening and manual work. Physical Therapy Plan Frequency and Duration Frequency of Treatment 1x/Week Duration of Treatment 6 weeks Plan of Care Start Date 06/12/21 Plan of Care End Date 07/28/21 Therapeutic Interventions Therapeutic Interventions Balance Training,Canalithic Repositioning,Gait Training, Home Exercise Program,Joint Mobilizations,Manual Therapy, Neuromuscular Re-education, Patient/Caregiver Education, Self-Care/Home Management,Soft Tissue Mobilization,Taping, Therapeutic Activities, Therapeutic Exercises Modalities Cold Pack/Ice Massage,Hot Packs Next Visit Focus/Plan Next Note Type Treatment Note Next Visit Plan Consider pool noodle pect stretch and strengthening progression with theraband, Buteyko breathing Plan of Care Dates Plan of Care Start Date 06/12/21 Plan of Care End Date 07/28/21 Electronically Signed by: Zuleima Suarez PT 06/12/21 2501 Please Sign and Return: I have reviewed this Plan of Care and certify that the skilled therapy services above are required to meet the patient?s needs. Physician Signature Date Printed Name and Credentials Clinical Instructor Signature Printed Name and Credentials
--- NOTE | 2021-06-19 13:46 | PT.OTN ---
Current Diagnoses Tension-type headache, unspecified, not intractable (06/19/21) Physical Therapy Treatment Note PT-OP-A Visit Information Start: 04/28/21 16:10 Freq: Status: Active Protocol: Document 06/19/21 13:00 MB (Rec: 06/19/21 13:46 MB [id number]) Out-Patient Physical Therapy Visit Information Visit Information Visit Type Treatment Note Visit Start Time 13:00 Visit Stop Time 13:45 Total Visit Minutes 45 Visit Number 8 Evaluation Information Evaluation Date 04/28/21 PT-OP-B Current Condition Start: 04/28/21 16:10 Freq: Status: Active Protocol: Document 04/28/21 16:11 OF (Rec: 04/28/21 16:29 OF [id number]) Current Condition History of Current Condition Onset Date several months Current Complaints headach suboccipital, frontal History of Current Condition Pt states she has had increasing frequency of headaches. 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 She thinks it was d/t the stress from her paper and eating snacks. When she went for a walk yesterday afternoon , it got better. She has a bit of a headache hangover today. PT-OP-H Neuro Start: 04/28/21 16:10 Freq: Status: Active Protocol: Document 04/28/21 16:11 OF (Rec: 04/28/21 16:29 OF [id number]) Sensation Evaluation Gross Sensation Gross Sensation WNL Comments Summary Comments Pt reports inconsistent tingling over R dorsum of hand , up to elbow, occasional. PT-OP-K Range of Motion Start: 04/28/21 16:10 Freq: Status: Active Protocol: Document 04/28/21 16:11 OF (Rec: 04/28/21 16:29 OF [id number]) Cervical Spine Range of Motion Cervical Spine Active Testing Position Sitting Comments pt demonstrates normal Cspine AROM PT-OP-L Special Tests Start: 04/28/21 16:10 Freq: Status: Active Protocol: Document 04/28/21 16:11 OF (Rec: 04/28/21 16:29 OF [id number]) Special Tests Cervical Spine Special Tests Spurling's Test Test Results (-) Comments bilat PT-OP-Q Treatments Start: 04/28/21 16:10 Freq: Status: Active Protocol: Document 06/19/21 13:00 MB (Rec: 06/19/21 13:46 MB [id number]) Therapeutic Exercises Supine Exercises Buteyko breathing Supine Exercise Name Ed in theory, purpose and ed and practice in exercise 1 and diaphragm breat Manual Therapy Treatment Other Other Manual Treatments Suboccipital release, gentle STM B SCM and temporalis PT-OP-T Assessment and Plan Start: 04/28/21 16:10 Freq: Status: Active Protocol: Document 06/19/21 13:00 MB (Rec: 06/19/21 13:46 MB [id number]) Physical Therapy Assessment Goals 3 Stone Trimmer Goal (LTG) Pt will perform progressive HEP with I including postural, flexibility, relaxation and strengthening exercises to improve pain by 07/28/21. LTG Duration 6 weeks 2 Stone Trimmer Goal (LTG) Pt will report a 50% improvement in sleeping to improve restorative rest by . LTG Duration 6 weeks 4 Stone Trimmer Goal (LTG) Pt will report a 75% improvement in headache pain in general to improve quality of life by 07/28/21. 06/12/21: Pt reports a 50% improvement in headache pain since starting PT. LTG Duration 6 weeks Assessment Summary Assessment Pt lying with head and neck supported, legs up. HR and O2 sats in left index finger before exercise: 66 BPM and 96 %. Rep 1: 20 sec and HR 63 BPM and sats 98%. Ed pt about diaphragm and placed book on stomach. Rep 2: 24 sec and HR and O2 sats similar; rep 3: 23 sec and HR 64 BPM and sats similar to 97%; rep 4: 25 sec HR 62 BPM, 99%; rep 5: 28 sec, HR 61 BPM and sats 99%; rep 6 : 15 sec and HR 61 BPM and sats 98%. Ed pt to perform with increased stress, with breaks when doing papers and before sleeping at home. Gentle manual work today as well. Physical Therapy Plan Frequency and Duration Frequency of Treatment 1x/Week Duration of Treatment 6 weeks Plan of Care Start Date 06/12/21 Plan of Care End Date 07/28/21 Therapeutic Interventions Therapeutic Interventions Balance Training,Canalithic Repositioning,Gait Training, Home Exercise Program,Joint Mobilizations,Manual Therapy, Neuromuscular Re-education, Patient/Caregiver Education, Self-Care/Home Management,Soft Tissue Mobilization,Taping, Therapeutic Activities, Therapeutic Exercises Modalities Cold Pack/Ice Massage,Hot Packs Next Visit Focus/Plan Next Note Type Treatment Note Next Visit Plan Consider pool noodle pect stretch and strengthening progression with theraband, Counterstrain
--- NOTE | 2021-06-26 13:02 | PT.OTN ---
Current Diagnoses Tension-type headache, unspecified, not intractable (06/26/21) Physical Therapy Treatment Note PT-OP-A Visit Information Start: 04/28/21 16:10 Freq: Status: Active Protocol: Document 06/26/21 12:17 MB (Rec: 06/26/21 13:02 MB [id number]) Out-Patient Physical Therapy Visit Information Visit Information Visit Type Treatment Note Visit Note Progress note next time Visit Start Time 12:17 Visit Stop Time 13:00 Total Visit Minutes 43 Visit Number 9 Evaluation Information Evaluation Date 04/28/21 PT-OP-B Current Condition Start: 04/28/21 16:10 Freq: Status: Active Protocol: Document 04/28/21 16:11 OF (Rec: 04/28/21 16:29 OF [id number]) Current Condition History of Current Condition Onset Date several months Current Complaints headach suboccipital, frontal History of Current Condition Pt states she has had increasing frequency of headaches. 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 It was a two day headache. She would like to say that her exercises are helping. The Buteyko breathing reminded her of diving and it was kind of stressful. PT-OP-H Neuro Start: 04/28/21 16:10 Freq: Status: Active Protocol: Document 04/28/21 16:11 OF (Rec: 04/28/21 16:29 OF [id number]) Sensation Evaluation Gross Sensation Gross Sensation WNL Comments Summary Comments Pt reports inconsistent tingling over R dorsum of hand , up to elbow, occasional. PT-OP-K Range of Motion Start: 04/28/21 16:10 Freq: Status: Active Protocol: Document 04/28/21 16:11 OF (Rec: 04/28/21 16:29 OF [id number]) Cervical Spine Range of Motion Cervical Spine Active Testing Position Sitting Comments pt demonstrates normal Cspine AROM PT-OP-L Special Tests Start: 04/28/21 16:10 Freq: Status: Active Protocol: Document 04/28/21 16:11 OF (Rec: 04/28/21 16:29 OF [id number]) Special Tests Cervical Spine Special Tests Spurling's Test Test Results (-) Comments bilat PT-OP-Q Treatments Start: 04/28/21 16:10 Freq: Status: Active Protocol: Document 06/26/21 12:17 MB (Rec: 06/26/21 13:02 MB [id number]) Therapeutic Exercises Supine Exercises Pool noodle exercises Side bilateral Equipment Used Red pool noodle Reps/Minutes 10 reps ROM and 20-30 sec pect stretch Comments B shoulder flexion, Ts, 1/2 x and pect stretch Manual Therapy Treatment Other Other Manual Treatments Pt prone: scapular mobs, STM cervical paraspinals, occipital muscles, rib recoil B, grade III-IV PA mobs, STM B upper traps and levator PT-OP-T Assessment and Plan Start: 04/28/21 16:10 Freq: Status: Active Protocol: Document 06/26/21 12:17 MB (Rec: 06/26/21 13:02 MB [id number]) Physical Therapy Assessment Goals 3 Mcfp Goal (LTG) Pt will perform progressive HEP with I including postural, flexibility, relaxation and strengthening exercises to improve pain by 07/28/21. LTG Duration 6 weeks 2 Mcfp Goal (LTG) Pt will report a 50% improvement in sleeping to improve restorative rest by . LTG Duration 6 weeks 4 Mcfp Goal (LTG) Pt will report a 75% improvement in headache pain in general to improve quality of life by 07/28/21. 06/12/21: Pt reports a 50% improvement in headache pain since starting PT. LTG Duration 6 weeks Assessment Summary Assessment Manual work today and pt tolerates well initially. Increased tension right compared to left ribs and musculature. Will monitor response. Pt likes the pool noodle today. Review her HEP next treatment date. Physical Therapy Plan Frequency and Duration Frequency of Treatment 1x/Week Duration of Treatment 6 weeks Plan of Care Start Date 06/12/21 Plan of Care End Date 07/28/21 Therapeutic Interventions Therapeutic Interventions Balance Training,Canalithic Repositioning,Gait Training, Home Exercise Program,Joint Mobilizations,Manual Therapy, Neuromuscular Re-education, Patient/Caregiver Education, Self-Care/Home Management,Soft Tissue Mobilization,Taping, Therapeutic Activities, Therapeutic Exercises Modalities Cold Pack/Ice Massage,Hot Packs Next Visit Focus/Plan Next Note Type Treatment Note Next Visit Plan Review pt's HEP and she will bring in handouts Consider pool noodle strengthening progression with theraband, Counterstrain
--- NOTE | 2021-06-30 10:32 | PT.OTN ---
Current Diagnoses Tension-type headache, unspecified, not intractable (06/30/21) Physical Therapy Treatment Note PT-OP-A Visit Information Start: 04/28/21 16:10 Freq: Status: Active Protocol: Document 06/30/21 09:46 MB (Rec: 06/30/21 10:31 MB [id number]) Out-Patient Physical Therapy Visit Information Visit Information Visit Type Progress Note Visit Start Time 09:46 Visit Stop Time 10:30 Total Visit Minutes 44 Visit Number 10 Evaluation Information Evaluation Date 04/28/21 PT-OP-B Current Condition Start: 04/28/21 16:10 Freq: Status: Active Protocol: Document 04/28/21 16:11 OF (Rec: 04/28/21 16:29 OF [id number]) Current Condition History of Current Condition Onset Date several months Current Complaints headach suboccipital, frontal History of Current Condition Pt states she has had increasing frequency of headaches. 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 Since starting PT, her headaches are better. She does have some more pressure in the front of her head. PT-OP-H Neuro Start: 04/28/21 16:10 Freq: Status: Active Protocol: Document 04/28/21 16:11 OF (Rec: 04/28/21 16:29 OF [id number]) Sensation Evaluation Gross Sensation Gross Sensation WNL Comments Summary Comments Pt reports inconsistent tingling over R dorsum of hand , up to elbow, occasional. PT-OP-K Range of Motion Start: 04/28/21 16:10 Freq: Status: Active Protocol: Document 04/28/21 16:11 OF (Rec: 04/28/21 16:29 OF [id number]) Cervical Spine Range of Motion Cervical Spine Active Testing Position Sitting Comments pt demonstrates normal Cspine AROM PT-OP-L Special Tests Start: 04/28/21 16:10 Freq: Status: Active Protocol: Document 04/28/21 16:11 OF (Rec: 04/28/21 16:29 OF [id number]) Special Tests Cervical Spine Special Tests Spurling's Test Test Results (-) Comments bilat PT-OP-Q Treatments Start: 04/28/21 16:10 Freq: Status: Active Protocol: Document 06/30/21 09:46 MB (Rec: 06/30/21 10:31 MB [id number]) Therapeutic Exercises Supine Exercises Pool noodle strengthening exercises Side bilateral Resistance Level 1 band Equipment Used Purple pool noodle Comments Ts, 1/2 Xs and ER Pool noodle exercises Side bilateral Equipment Used Purple pool noodle Reps/Minutes 10 reps ROM and 20-30 sec pect stretch Comments B shoulder flexion, Ts, 1/2 x and pect stretch cervical rotation w/ head nod Side bilateral Comments Pt performs in standing today Standing Exercises Racquet ball massage Side bilateral Comments B supraspinatus, levator, intrascapular muscles Manual Therapy Treatment Other Other Manual Treatments Pt sitting up in chair: MWM with TrP pressure at suboccipital muscles, middle scalene and upper traps and pt moving head the other direction PT-OP-T Assessment and Plan Start: 04/28/21 16:10 Freq: Status: Active Protocol: Document 06/30/21 09:46 MB (Rec: 06/30/21 10:31 MB [id number]) Physical Therapy Assessment Goals 3 Assisted Goal (LTG) Pt will perform progressive HEP with I including postural, flexibility, relaxation and strengthening exercises to improve pain by 07/28/21. 06/30/21: Pt has been doing the racquet ball when she is studying because it gets her up and out of the chair. She is performing cervical rotation with head nods and stretching in the doorway. She is not doing the head stretches. She does not bring in the handouts today. LTG Duration 4 weeks 2 Chief Dog License Inspector Goal (LTG) Pt will report a 50% improvement in sleeping to improve restorative rest by . 06/30/21: Pt states that she has had a 5-10% improvement in sleeping since starting PT. She has stopped eating late at night, stopped the alcohol, is drinking more water and tried the breathing exercises. She did not like the breathing exercises. She keeps the TV on at night in the room. LTG Duration 4 weeks 4 Chief Dog License Inspector Goal (LTG) Pt will report a 75% improvement in headache pain in general to improve quality of life by 07/28/21. 06/30/21: Pt reports a 50% improvement in headaches since starting PT LTG Duration 4 weeks Assessment Summary Assessment Pt is able the same since last updated goals in May. She has improved with sleeping and headaches since starting PT. She forgot her HEP handouts today and so started pool noodle strengthening today. She will bring in old handouts next treatment to review and revise program as needed. Pt has three more scheduled appointments and would like to stop PT after that time. She will benefit from these visits to progress exercises and for more manual work. Pt states that she has numbness in her right arm when sleeping. She also has some symptoms in her left arm but had carpal tunnel surgery in this one and it is better than the right. She has never seen a headache specialist neurologist and this might be considered. PT recommends at least some medication and/or supplement discussion with a headache specialist provider. Physical Therapy Plan Frequency and Duration Frequency of Treatment 1x/Week Duration of Treatment 4 weeks Plan of Care Start Date 06/30/21 Plan of Care End Date 07/28/21 Therapeutic Interventions Therapeutic Interventions Balance Training,Canalithic Repositioning,Gait Training, Home Exercise Program,Joint Mobilizations,Manual Therapy, Neuromuscular Re-education, Patient/Caregiver Education, Self-Care/Home Management,Soft Tissue Mobilization,Taping, Therapeutic Activities, Therapeutic Exercises Modalities Cold Pack/Ice Massage,Hot Packs Next Visit Focus/Plan Next Note Type Treatment Note Next Visit Plan Review and take out any of pt' s old HEP handouts (previous to pool noodle from last two visits) and she will bring in handouts next visit, craniosacral with PILE DRIVER OPERATOR When next sees PT: upper cervical rotation isometric
--- NOTE | 2021-07-07 13:00 | PT.OTN ---
Current Diagnoses Tension-type headache, unspecified, not intractable (07/07/21) Physical Therapy Treatment Note PT-OP-A Visit Information Start: 04/28/21 16:10 Freq: Status: Active Protocol: Document 07/07/21 12:17 SP (Rec: 07/07/21 13:28 SP [id number]) Out-Patient Physical Therapy Visit Information Visit Information Visit Type Treatment Note Visit Start Time 12:17 Visit Stop Time 13:00 Total Visit Minutes 43 Visit Number 11 Number of FOOD SAFETY TECHNICIAN Visits 1 Evaluation Information Evaluation Date 04/28/21 PT-OP-B Current Condition Start: 04/28/21 16:10 Freq: Status: Active Protocol: Document 04/28/21 16:11 OF (Rec: 04/28/21 16:29 OF [id number]) Current Condition History of Current Condition Onset Date several months Current Complaints headach suboccipital, frontal History of Current Condition Pt states she has had increasing frequency of headaches. 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 Compliant with HEp given and feel making overall gains. PT-OP-H Neuro Start: 04/28/21 16:10 Freq: Status: Active Protocol: Document 04/28/21 16:11 OF (Rec: 04/28/21 16:29 OF [id number]) Sensation Evaluation Gross Sensation Gross Sensation WNL Comments Summary Comments Pt reports inconsistent tingling over R dorsum of hand , up to elbow, occasional. PT-OP-K Range of Motion Start: 04/28/21 16:10 Freq: Status: Active Protocol: Document 04/28/21 16:11 OF (Rec: 04/28/21 16:29 OF [id number]) Cervical Spine Range of Motion Cervical Spine Active Testing Position Sitting Comments pt demonstrates normal Cspine AROM PT-OP-L Special Tests Start: 04/28/21 16:10 Freq: Status: Active Protocol: Document 04/28/21 16:11 OF (Rec: 04/28/21 16:29 OF [id number]) Special Tests Cervical Spine Special Tests Spurling's Test Test Results (-) Comments bilat PT-OP-Q Treatments Start: 04/28/21 16:10 Freq: Status: Active Protocol: Document 07/07/21 12:17 SP (Rec: 07/07/21 13:28 SP [id number]) Therapeutic Exercises Supine Exercises Pool noodle strengthening exercises Supine Exercise Name reviewed Side bilateral Resistance Level 1 band Equipment Used red pool noodle Reps/Minutes x10 each Comments Ts, 1/2 Xs ( cued elbow straight, ER Pool noodle exercises Supine Exercise Name added Ws Side bilateral Equipment Used red pool noodle Reps/Minutes x10 Comments good feedback forarms almost / / table , painfree cervical rotation w/ head nod Supine Exercise Name standing Side bilateral Comments good feedback response Standing Exercises Racquet ball massage Standing Exercise Name verbalized dong at home- not performed Side bilateral Comments B supraspinatus, levator, intrascapular muscles Manual Therapy Treatment Soft Tissue Mobilization jaw Body Location B masseter, medial pterygoid, hypoglossals Mobilization Type Myofascial Release,Sustained Pressure Intensity/Depth Moderate Body Position Supine Comments manual and ed self application for decrease tension jaw and can carryover relaxing head/ neck- good resulted feedback STMs Body Location suboccipitals,SCM, UT, QUALITY CONTROL TECH, temporalis, Mobilization Type Cross-Friction,Sustained Pressure,Other Intensity/Depth Moderate Body Position Hooklying Comments manual and instruction on self application. Initiated craniosacral therapy: decompression attention over parietal/frontal/temporal/ sphenoid, mandible with ed self application directioning and light wt contact nickel at home if helpful. Good understanding. PT-OP-T Assessment and Plan Start: 04/28/21 16:10 Freq: Status: Active Protocol: Document 07/07/21 12:17 SP (Rec: 07/07/21 13:28 SP [id number]) Physical Therapy Assessment Goals 3 Chronometer Assembler Goal (LTG) Pt will perform progressive HEP with I including postural, flexibility, relaxation and strengthening exercises to improve pain by 07/28/21. 06/30/21: Pt has been doing the racquet ball when she is studying because it gets her up and out of the chair. She is performing cervical rotation with head nods and stretching in the doorway. She is not doing the head stretches. She does not bring in the handouts today. LTG Duration 4 weeks 2 Chronometer Assembler Goal (LTG) Pt will report a 50% improvement in sleeping to improve restorative rest by . 06/30/21: Pt states that she has had a 5-10% improvement in sleeping since starting PT. She has stopped eating late at night, stopped the alcohol, is drinking more water and tried the breathing exercises. She did not like the breathing exercises. She keeps the TV on at night in the room. LTG Duration 4 weeks 4 Chronometer Assembler Goal (LTG) Pt will report a 75% improvement in headache pain in general to improve quality of life by 07/28/21. 06/30/21: Pt reports a 50% improvement in headaches since starting PT LTG Duration 4 weeks Assessment Summary Assessment Pt forgot her PT ex handouts and couldn't find scanned handouts to review/ recall. Pt had good feedback response to intraoral, QUALITY CONTROL TECH, cervical manual STMs with education instruction self application for tightness release and postural awareness alignment corrections with HEP over noodle with TB strengthening and MWM cervical rot/ nods. Occasional cuing for no UT recruitment and ER arm during Xs using TB. Physical Therapy Plan Frequency and Duration Frequency of Treatment 1x/Week Duration of Treatment 4 weeks Plan of Care Start Date 06/30/21 Plan of Care End Date 07/28/21 Therapeutic Interventions Therapeutic Interventions Balance Training,Canalithic Repositioning,Gait Training, Home Exercise Program,Joint Mobilizations,Manual Therapy, Neuromuscular Re-education, Patient/Caregiver Education, Self-Care/Home Management,Soft Tissue Mobilization,Taping, Therapeutic Activities, Therapeutic Exercises Modalities Cold Pack/Ice Massage,Hot Packs Next Visit Focus/Plan Next Note Type Treatment Note Next Visit Plan Recheck added Ws assume on sheet she has AROM over noodle . Reminded to bring pt's old HEP handouts (previous to pool noodle from last two visits) and she verbalized will bring in handouts. When next sees PT: upper cervical rotation isometric. Add standing shld ext/ rows/ quadruped w cues needed for head/ neck/jaw relaxed alignment then add UE/ LE ext bird dog if able. Theracane post CS MWM nods/turns.
--- NOTE | 2021-07-14 10:17 | PT.OTN ---
Current Diagnoses Tension-type headache, unspecified, not intractable (07/14/21) Physical Therapy Treatment Note PT-OP-A Visit Information Start: 04/28/21 16:10 Freq: Status: Active Protocol: Document 07/14/21 09:45 MB (Rec: 07/14/21 10:13 MB [id number]) Out-Patient Physical Therapy Visit Information Visit Information Visit Type Treatment Note Visit Start Time 09:45 Visit Stop Time 10:15 Total Visit Minutes 30 Visit Number 12 Number of HAND CLERICAL VERIFIER Visits 0 Evaluation Information Evaluation Date 04/28/21 PT-OP-B Current Condition Start: 04/28/21 16:10 Freq: Status: Active Protocol: Document 04/28/21 16:11 OF (Rec: 04/28/21 16:29 OF [id number]) Current Condition History of Current Condition Onset Date several months Current Complaints headach suboccipital, frontal History of Current Condition Pt states she has had increasing frequency of headaches. 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 Today's headache is the first one that she has had in about two weeks. That last one did last about 24 hours. She feels her headache is progressing right now. PT-OP-H Neuro Start: 04/28/21 16:10 Freq: Status: Active Protocol: Document 04/28/21 16:11 OF (Rec: 04/28/21 16:29 OF [id number]) Sensation Evaluation Gross Sensation Gross Sensation WNL Comments Summary Comments Pt reports inconsistent tingling over R dorsum of hand , up to elbow, occasional. PT-OP-K Range of Motion Start: 04/28/21 16:10 Freq: Status: Active Protocol: Document 04/28/21 16:11 OF (Rec: 04/28/21 16:29 OF [id number]) Cervical Spine Range of Motion Cervical Spine Active Testing Position Sitting Comments pt demonstrates normal Cspine AROM PT-OP-L Special Tests Start: 04/28/21 16:10 Freq: Status: Active Protocol: Document 04/28/21 16:11 OF (Rec: 04/28/21 16:29 OF [id number]) Special Tests Cervical Spine Special Tests Spurling's Test Test Results (-) Comments bilat PT-OP-Q Treatments Start: 04/28/21 16:10 Freq: Status: Active Protocol: Document 07/14/21 09:45 MB (Rec: 07/14/21 10:13 MB [id number]) Self-Care/Home Management Treatment Education Other Education Ed pt on importance of medical management in helping headaches for full disciplinary care including a medication to take when she has a headache, possible sleep study and medical acupuncture . Ed pt in the increased risk for stroke in pts who have uncontrolled headaches. Ed pt and set-up pt with cervical heat and forehead ice today and she feels better with this . Ed pt in benefits of following up with her PCP about PT recommendations. PT-OP-T Assessment and Plan Start: 04/28/21 16:10 Freq: Status: Active Protocol: Document 07/14/21 09:45 MB (Rec: 07/14/21 10:13 MB [id number]) Physical Therapy Assessment Goals 3 Chcf Goal (LTG) Pt will perform progressive HEP with I including postural, flexibility, relaxation and strengthening exercises to improve pain by 07/28/21. 07/14/21: Pt is performing pool noodle exercises, racquet ball, cervical stretches. She did not like nasal breathing. LTG Duration Met 2 Chcf Goal (LTG) Pt will report a 50% improvement in sleeping to improve restorative rest by . 07/14/21: Pt states that she has had a 5-10% improvement in sleeping since starting PT. This is similar to progress note LTG Duration Partially met 4 Gear Coding Machine Operator Goal (LTG) Pt will report a 75% improvement in headache pain in general to improve quality of life by 07/28/21. 07/14/21: Pt reports a 60% improvement in headaches since starting PT LTG Duration Partially met Assessment Summary Assessment Ed pt in benefits of talking with doctor about headache specialist, medical acupuncture per PCP, medication to take when she has a headache and sleep study . Overall, severe headaches that last over a day are disruptive to quality of life, home responsibilities, ability to do school work and PT is concerned about her neurological trajectory as far as increased risk of stroke in setting of headaches that she essentially rides out and does not take medication for. Pt feels like PT has been very helpful. She has had 12 visits including the eval and would like to d/c today. PT feels that more PT could have been helpful but that there is a medical/medication component to her management that would really be helpful as well and is needed for full effectiveness of PT. Will d/c PT. Provided extensive ed to pt today and PT set up pt with cervical head and ice for forehead to help decrease headache progression and show pt how to perform at home. Pt with arms out in pect stretch position and legs up on wedge with head and neck supported for ice and heat.
== END 2021-09-15 09:35 ==
LOC: PHYS 09:45
PROVIDERS: PCP Family Medicine; Referring Provider Family Medicine; Visit Provider Family Medicine
DX: G44.209 Tension-type headache, unspecified, not intractable (principal)
CPT/HCPCS: 97110; 97140; 97161; 97535